=== PATIENT | female | born 2000 | race Caucasian/White ===

== ENCOUNTER 2020-05-21 16:37 | Emergency (ER) | payer OTHER ==
[2020-05-21 17:20] LABS: BASOPHIL 0.7 % (0-2); HGB 14.4 g/dl (12.5-16.0); LYMPHOCYTE 23.4 % (15-48); MCH 30.3 pg (25.0-31.0); MCHC 33.5 g/dL (32.0-36.0); MCV 90.3 fL (78.0-100.0); MONOCYTE 10.1 % (0-12); NEUTROPHIL 64.5 % (41-80); NRBC 0; PLT 243 K/uL (150-400); RBC 4.76 M/uL (4.20-5.40); RDW 12.6 % (11.5-14.0); WBC 6.9 K/uL (4.0-10.5)
[2020-05-21 17:35] LABS: BUN/CREAT RATIO (CALC) 11.1 RATIO; CREATININE 0.72 mg/dL (0.51-0.95); POTASSIUM 3.7 mmol/L (3.5-5.1)
[2020-05-21 19:13] LABS: BILIRUBIN NEGATIVE (NEGATIVE); BLOOD TRACE-INTACT Ery/uL (NEGATIVE); COLOR YELLOW (YELLOW); GLUCOSE (U) NORMAL (NORMAL); LEUKOCYTES 2+ Leu/uL (NEGATIVE); NITRITE NEGATIVE (NEGATIVE); PROTEIN NEGATIVE (NEGATIVE); SPECIFIC GRAVITY 1.015 (1.001-1.030); UROBILINOGEN 0.2 mg/dL (0.2-1.0)
[2020-05-21 19:22] LABS: BACTERIA 1+; CLARITY HAZY (CLEAR); URINARY WBC 20-50
[2020-05-21] MEDS ORDERED: BACTRIM DS TAB1 EACH PO (19:39)
== END 2020-05-21 20:12 | disposition home or self-care (01) ==
LOC: FER 16:37
PROVIDERS: Nurse Practitioner Family
DX: N39.0 Urinary tract infection, site not specified (principal); Z88.0 Allergy status to penicillin
CPT/HCPCS: 36415; 80048; 81001; 85025; 87076; 87088; J7030

== ENCOUNTER 2021-07-17 20:29 | Emergency (ER) | payer OTHER ==
[~2021-07-17 20:29] MED LIST: BACTRIM DS TAB1 EACH PO
[2021-07-17] MEDS ORDERED: BACTRIM DS TAB1 EACH PO (23:21)
== END 2021-07-17 23:29 | disposition home or self-care (01) ==
LOC: FER 20:29
DX: L02.31 Cutaneous abscess of buttock (principal); Z88.1 Allergy status to other antibiotic agents
CPT/HCPCS: 87070; 87077; 87186; 87205